=== PATIENT | male | born 1995 | race Two or more races ===

== ENCOUNTER 2023-09-23 10:23 | Emergency (ER) | payer SELFPAY ==
[~2023-09-23] VITALS: Ht 180.3 cm; Wt 136.4 kg
[2023-09-23 10:38] VITALS: TEMP 97.6
[2023-09-23] MEDS ORDERED: LORazepam 2 MG/ML VIAL IM ONE (11:00)
[2023-09-23] MEDS ORDERED: DiphenhydrAMINE HCL 50 MG/ML VIAL IM ONE (11:00)
[2023-09-23] MEDS ORDERED: HALOPERIDOL LACTATE 5 MG/ML VIAL IM ONE (11:00)
[2023-09-23 11:40] LABS: COVID AG,FIA SOURCE NASAL SWAB
[2023-09-23 11:42] LABS: BASOPHILS % (AUTO) 0.5 % (0.0-2.0); EOSINOPHILS % (AUTO) 1.8 % (1.0-6.0); HEMATOCRIT 39.1 % (41-53); HEMOGLOBIN 13.5 g/dL (13.5-17.5); LYMPHOCYTES # (AUTO) 1.1 K/uL (1.0-4.8); LYMPHOCYTES % (AUTO) 13.3 % (22.0-44.0); MEAN CORPUSCULAR HEMOGLOBIN 31.4 pg (26.0-34.0); MEAN CORPUSCULAR HGB CONC 34.4 G/dL (31.0-37.0); MEAN CORPUSCULAR VOLUME 91 fL (80-100); MONOCYTES # (AUTO) 0.6 K/uL (0.1-1.0); MONOCYTES % (AUTO) 6.9 % (2.0-9.0); NEUTROPHILS # (AUTO) 6.3 K/uL (1.8-7.7); NEUTROPHILS % (AUTO) 77.5 % (40.0-70.0); PLATELET COUNT (AUTO) 195 K/uL (150-450); RED BLOOD CELL COUNT(AUTO) 4.29 MIL/uL (4.50-5.90); RED CELL DISTRIBUTION WIDTH 14.2 % (11.5-14.5); WHITE BLOOD COUNT (AUTO) 8.2 K/uL (4.5-11.0)
[2023-09-23 11:52] LABS: ANION GAP 11 mmol/L (8-16); CALCIUM, TOTAL 8.7 mg/dL (8.8-10.5); CARBON DIOXIDE 25 mmol/L (22-29); CHLORIDE 104 mmol/L (98-107); CREATININE 0.67 mg/dL (0.60-1.30); GLOMERULAR FILTR. RATE CALC > 60 mL/min (>60); GLUCOSE,RANDOM 108 mg/dL (70-110); POTASSIUM 3.4 mmol/L (3.5-5.1); SODIUM SERUM 140 mmol/L (136-145); UREA NITROGEN, BLOOD 11 mg/dL (7-18)
[2023-09-23 11:58] LABS: TROPONIN I-HIGH SENSITIVITY 7 ng/L (<76)
[2023-09-23 12:04] LABS: LACTIC ACID 0.9 mmol/L (0.4-2.0)
[2023-09-23 12:16] LABS: ALANINE AMINOTRANSFERASE 58 U/L (12-78); ALBUMIN 3.4 g/dL (3.4-5.0); ALKALINE PHOSPHATASE 73 U/L (46-116); ASPARTATE AMINOTRANSFERASE 75 U/L (15-37); BILIRUBIN,TOTAL 0.8 mg/dL (0.1-1.0); LIPASE 17 U/L (16-77); TOTAL PROTEIN, SERUM 7.6 g/dL (6.4-8.2)
[2023-09-23 12:18] LABS: CREATINE KINASE, TOTAL ONLY 2136 U/L (39-308)
[2023-09-23 12:24] LABS: SARS-COV2 (COVID) ANTIGEN,FIA Negative (Negative)
[2023-09-23 13:05] LABS: ALCOHOL, BLOOD (SERUM) < 3 mg/dL (0-10)
[2023-09-23] MEDS ORDERED: POTASSIUM CHLORIDE 10% 40 MEQ/30 ML LIQUID UDCUP PO ONE (14:15)
[2023-09-23 23:01] VITALS: BP 113/53; PULSE 80
[2023-09-24 06:00] VITALS: RESP 16
== END 2023-09-24 06:03 | disposition home or self-care (01) ==
LOC: EMS 10:25
DX: S80.11XA Contusion of right lower leg, initial encounter (principal); S90.414A Abrasion, right lesser toe(s), initial encounter; E87.6 Hypokalemia; F15.10 Other stimulant abuse, uncomplicated; F17.210 Nicotine dependence, cigarettes, uncomplicated; Z20.822 Contact with and (suspected) exposure to COVID-19; X58.XXXA Exposure to other specified factors, initial encounter; Y93.89 Activity, other specified; Y92.89 Other specified places as the place of occurrence of the external cause; Y99.8 Other external cause status
CPT/HCPCS: 99291; 87426; 80053; 82550; 83605; 83690; 84484; 85025; 73562; 73590; 73630; 96372; G0480; J1200; J1630; J2060

== ENCOUNTER 2023-10-24 16:57 | Inpatient (IN) | payer MEDICAID, SELFPAY ==
[~2023-10-24] VITALS: Ht 177.8 cm; Wt 103.4 kg
[2023-10-24 18:48] LABS: ALCOHOL, URINE DRUG SCREEN NEGATIVE (NEGATIVE); AMPHET/METH SCREEN,URINE POSITIVE (NEGATIVE); BARBITURATE SCREEN, URINE NEGATIVE (NEGATIVE); BENZODIAZEPINES SCREEN,URINE NEGATIVE (NEGATIVE); CANNABINOID SCREEN,URINE POSITIVE (NEGATIVE); COCAINE SCREEN,URINE NEGATIVE (NEGATIVE); METHADONE SCREEN, URINE NEGATIVE (NEGATIVE); OPIATE SCREEN,URINE NEGATIVE (NEGATIVE); PHENCYCLIDINE SCREEN,URINE NEGATIVE (NEGATIVE)
[2023-10-24 18:56] LABS: BASOPHILS % (AUTO) 0.4 % (0.0-2.0); EOSINOPHILS % (AUTO) 1.8 % (1.0-6.0); HEMATOCRIT 41.1 % (41-53); LYMPHOCYTES # (AUTO) 2.1 K/uL (1.0-4.8); LYMPHOCYTES % (AUTO) 31.2 % (22.0-44.0); MEAN CORPUSCULAR HEMOGLOBIN 30.8 pg (26.0-34.0); MEAN CORPUSCULAR VOLUME 91 fL (80-100); MONOCYTES # (AUTO) 0.6 K/uL (0.1-1.0); MONOCYTES % (AUTO) 9.7 % (2.0-9.0); NEUTROPHILS # (AUTO) 3.8 K/uL (1.8-7.7); NEUTROPHILS % (AUTO) 56.9 % (40.0-70.0); PLATELET COUNT (AUTO) 212 K/uL (150-450); RED BLOOD CELL COUNT(AUTO) 4.54 MIL/uL (4.50-5.90); RED CELL DISTRIBUTION WIDTH 14.4 % (11.5-14.5); WHITE BLOOD COUNT (AUTO) 6.7 K/uL (4.5-11.0)
[2023-10-24 19:07] LABS: ANION GAP 7 mmol/L (8-16); CALCIUM, TOTAL 9.4 mg/dL (8.8-10.5); CARBON DIOXIDE 29 mmol/L (22-29); CHLORIDE 104 mmol/L (98-107); GLOMERULAR FILTR. RATE CALC > 60 mL/min (>60); GLUCOSE,RANDOM 96 mg/dL (70-110); POTASSIUM 3.9 mmol/L (3.5-5.1); SODIUM SERUM 140 mmol/L (136-145); UREA NITROGEN, BLOOD 11 mg/dL (7-18)
[2023-10-24 19:14] LABS: ALANINE AMINOTRANSFERASE 43 U/L (12-78); ALBUMIN 4.1 g/dL (3.4-5.0); ALKALINE PHOSPHATASE 83 U/L (46-116); ASPARTATE AMINOTRANSFERASE 39 U/L (15-37); BILIRUBIN,TOTAL 0.7 mg/dL (0.1-1.0); TOTAL PROTEIN, SERUM 8.3 g/dL (6.4-8.2)
[2023-10-24 19:16] LABS: ALCOHOL, BLOOD (SERUM) < 3 mg/dL (0-10)
[2023-10-24 19:17] LABS: COVID AG,FIA SOURCE NASAL SWAB
[2023-10-24 19:42] LABS: SARS-COV2 (COVID) ANTIGEN,FIA Negative (Negative)
[2023-10-24] MEDS ORDERED: ZOLPIDEM TARTRATE 10 MG TABLET PO PRN (20:30)
[2023-10-24 21:48] LABS: APPEARANCE,URINE TURBID (CLEAR); BILIRUBIN,URINE NEGATIVE (NEGATIVE); COLOR,URINE ORANGE (YELLOW); GLUCOSE, URINE (UA) NEGATIVE (NEGATIVE); KETONES,URINE NEGATIVE (NEGATIVE); LEUKOCYTE ESTERASE ,URINE NEGATIVE (NEGATIVE); NITRATE,URINE NEGATIVE (NEGATIVE); OCCULT BLOOD,URINE NEGATIVE (NEGATIVE); PROTEIN,URINE 30-70 mg/dL (NEGATIVE); SPECIFIC GRAVITIY, URINE 1.038 (1.003-1.030)
[2023-10-25 02:09] VITALS: BP 134/85; PULSE 74; RESP 19; TEMP 97.1; O2SAT 99
[2023-10-25] MEDS ORDERED: INFLUENZA VIRUS VACCINE QVS 2023-24 (6MO+)/PF 60 MCG/0.5 ML SYRINGE IM. ONE (02:45)
[2023-10-25 08:13] VITALS: BP 116/86; PULSE 77; RESP 18; TEMP 97.9; O2SAT 96
[2023-10-25] MEDS: BACITRACIN 28 GM OINTMENT TP SCH ×2 (09:00→17:16)
[2023-10-25] MEDS: SERTRALINE HCL 50 MG TABLET PO SCH (11:19)
[2023-10-25] MEDS ORDERED: CloNIDine HCL 0.1 MG TABLET PO PRN (13:45)
[2023-10-25] MEDS ORDERED: IBUPROFEN 400 MG TABLET PO PRN (13:45)
[2023-10-25] MEDS ORDERED: ONDANSETRON HCL 4 MG TABLET PO PRN (13:45)
[2023-10-25] MEDS ORDERED: ACETAMINOPHEN 325 MG TABLET PO PRN (13:45)
[2023-10-25] MEDS ORDERED: DOCUSATE SODIUM 100 MG CAPSULE PO PRN (13:45)
[2023-10-25] MEDS ORDERED: MAG HYDROX/ALUMINUM HYD/SIMETH ES 30 ML SUSPENSION UDCUP PO PRN (13:45)
[2023-10-25] MEDS ORDERED: LOPERAMIDE HCL 2 MG CAPSULE PO PRN (13:45)
[2023-10-25] MEDS ORDERED: GuaiFENesin/D-METHORPHAN [SUGAR-FREE] 200-20MG/10 ML SYRUP UDCUP PO PRN (13:45)
[2023-10-25] MEDS ORDERED: MAGNESIUM HYDROXIDE SUSPENSION 30 ML UDCUP PO PRN (13:45)
[2023-10-25] MEDS ORDERED: PETROLATUM,WHITE 28 GM JELLY TP PRN (13:45)
[2023-10-25] MEDS ORDERED: ALBUTEROL SULFATE HFA 90 MCG/PUFF 8 GM INHALER IH PRN (13:45)
[2023-10-25] MEDS ORDERED: NICOTINE 14 MG/24 HOUR PATCH TD PRN (13:45)
[2023-10-25 23:47] VITALS: BP 118/78; PULSE 78; RESP 18; TEMP 97.8; O2SAT 98
[2023-10-26] MEDS: SERTRALINE HCL 50 MG TABLET PO SCH (08:18)
[2023-10-26] MEDS: BACITRACIN 28 GM OINTMENT TP SCH ×2 (08:19→16:42)
[2023-10-26 08:49] LABS: HEMOGLOBIN A1C 5.1 % (3.8-5.6)
[2023-10-26 08:58] LABS: CHOL/HDL RATIO 2.9 (4.2-7.3); FREE T4 (FREE THYROXINE) 1.36 ng/dL (0.76-1.46); THYROID STIMULATING HORMONE 0.49 uIU/mL (0.36-3.74)
[2023-10-26 09:40] VITALS: BP 133/73; PULSE 98; RESP 17; TEMP 98.9; O2SAT 99
[2023-10-26 23:31] VITALS: RESP 18
[2023-10-27] MEDS: BACITRACIN 28 GM OINTMENT TP SCH ×2 (08:48→16:48)
[2023-10-27] MEDS: SERTRALINE HCL 50 MG TABLET PO SCH (08:48)
[2023-10-27 09:04] VITALS: BP 122/66; PULSE 78; RESP 17; TEMP 98.2; O2SAT 97
[2023-10-27 23:30] VITALS: BP 120/69; PULSE 97; RESP 18; TEMP 98.3; O2SAT 99
[2023-10-28 08:43] VITALS: BP 124/64; PULSE 76; RESP 16; TEMP 97.5; O2SAT 97
[2023-10-28] MEDS: SERTRALINE HCL 50 MG TABLET PO SCH (09:19)
[2023-10-28] MEDS: BACITRACIN 28 GM OINTMENT TP SCH ×2 (09:19→16:00)
[2023-10-28] MEDS: LORazepam 2 MG TABLET PO PRN (16:27)
[2023-10-28 20:42] VITALS: BP 128/77; PULSE 99; RESP 17; TEMP 97.8; O2SAT 97
[2023-10-29] MEDS: HALOPERIDOL 5 MG TABLET PO PRN (08:51)
[2023-10-29] MEDS: LORazepam 2 MG TABLET PO PRN ×2 (08:53→17:10)
[2023-10-29] MEDS: SERTRALINE HCL 50 MG TABLET PO SCH (08:54)
[2023-10-29] MEDS: BACITRACIN 28 GM OINTMENT TP SCH ×2 (08:54→16:29)
[2023-10-29 08:59] VITALS: BP 137/70; PULSE 92; RESP 17; TEMP 97.8; O2SAT 98
[2023-10-29] MEDS ORDERED: CARBAMIDE PEROXIDE 6.5% 15 ML OTIC SOLUTION AS PRN (14:15)
[2023-10-29] MEDS: RisperiDONE 1 MG TABLET PO SCH (20:09)
[2023-10-29 20:22] VITALS: BP 134/64; PULSE 85; RESP 18; TEMP 98.3; O2SAT 96
[2023-10-30 08:37] VITALS: BP 121/64; PULSE 77; RESP 18; TEMP 97.8; O2SAT 95
[2023-10-30] MEDS: SERTRALINE HCL 50 MG TABLET PO SCH (08:54)
[2023-10-30] MEDS: LORazepam 2 MG TABLET PO PRN ×2 (08:54→16:53)
[2023-10-30] MEDS: RisperiDONE 1 MG TABLET PO SCH ×2 (08:54→21:50)
[2023-10-30] MEDS: HALOPERIDOL 5 MG TABLET PO PRN ×2 (08:54→16:53)
[2023-10-30] MEDS: BACITRACIN 28 GM OINTMENT TP SCH ×2 (08:54→16:54)
[2023-10-30 20:25] VITALS: RESP 20; TEMP 98
[2023-10-31 08:41] VITALS: BP 138/63; PULSE 78; RESP 19; TEMP 97.7; O2SAT 97
[2023-10-31] MEDS: BACITRACIN 28 GM OINTMENT TP SCH ×2 (09:00→17:03)
[2023-10-31] MEDS: SERTRALINE HCL 50 MG TABLET PO SCH (10:15)
[2023-10-31] MEDS: RisperiDONE 1 MG TABLET PO SCH ×2 (10:15→20:26)
[2023-10-31] MEDS: LORazepam 2 MG TABLET PO PRN ×2 (10:21→17:56)
[2023-10-31] MEDS: HALOPERIDOL 5 MG TABLET PO PRN ×2 (10:21→17:56)
[2023-10-31 20:03] VITALS: BP 111/71; PULSE 79; RESP 18; TEMP 97.8; O2SAT 96
[2023-11-01 08:27] VITALS: BP 111/60; PULSE 64; RESP 17; TEMP 98; O2SAT 97
[2023-11-01] MEDS: LORazepam 2 MG TABLET PO PRN (08:34)
[2023-11-01] MEDS: HALOPERIDOL 5 MG TABLET PO PRN (08:35)
[2023-11-01] MEDS: RisperiDONE 1 MG TABLET PO SCH ×2 (08:35→20:21)
[2023-11-01] MEDS: SERTRALINE HCL 50 MG TABLET PO SCH (08:37)
[2023-11-01] MEDS: BACITRACIN 28 GM OINTMENT TP SCH ×2 (08:37→16:10)
[2023-11-01 21:53] VITALS: BP 114/65; PULSE 89; RESP 18; TEMP 98.6; O2SAT 99
[2023-11-02] MEDS: SERTRALINE HCL 50 MG TABLET PO SCH (08:06)
[2023-11-02] MEDS: RisperiDONE 1 MG TABLET PO SCH ×2 (08:06→21:35)
[2023-11-02] MEDS: LORazepam 2 MG TABLET PO PRN ×2 (08:07→15:09)
[2023-11-02] MEDS: HALOPERIDOL 5 MG TABLET PO PRN ×2 (08:07→15:09)
[2023-11-02] MEDS: BACITRACIN 28 GM OINTMENT TP SCH ×2 (08:08→18:35)
[2023-11-02 08:46] VITALS: BP 121/64; PULSE 73; RESP 18; TEMP 98.2; O2SAT 99
[2023-11-02 21:05] VITALS: BP 111/68; PULSE 84; RESP 17; TEMP 97.6; O2SAT 99
[2023-11-03 08:26] VITALS: BP 110/67; PULSE 92; RESP 18; TEMP 97.7; O2SAT 98
[2023-11-03] MEDS: RisperiDONE 1 MG TABLET PO SCH ×2 (08:34→21:52)
[2023-11-03] MEDS: SERTRALINE HCL 50 MG TABLET PO SCH (08:34)
[2023-11-03] MEDS: BACITRACIN 28 GM OINTMENT TP SCH ×2 (08:35→17:16)
[2023-11-03] MEDS: LORazepam 2 MG TABLET PO PRN ×2 (13:18→21:52)
[2023-11-03 20:00] VITALS: BP 111/71; PULSE 71; RESP 18; TEMP 97.4; O2SAT 97
[2023-11-03] MEDS: HALOPERIDOL 5 MG TABLET PO PRN (21:53)
[2023-11-04 08:17] VITALS: BP 131/61; PULSE 66; RESP 18; TEMP 97.8; O2SAT 97
[2023-11-04] MEDS: SERTRALINE HCL 50 MG TABLET PO SCH (08:29)
[2023-11-04] MEDS: RisperiDONE 1 MG TABLET PO SCH ×2 (08:30→20:28)
[2023-11-04 20:26] VITALS: BP 106/66; PULSE 65; RESP 16; TEMP 97.2; O2SAT 98
[2023-11-05] MEDS: SERTRALINE HCL 50 MG TABLET PO SCH (08:07)
[2023-11-05] MEDS: RisperiDONE 1 MG TABLET PO SCH ×2 (08:07→21:38)
[2023-11-05 08:24] VITALS: BP 107/68; PULSE 82; RESP 17; TEMP 97.7; O2SAT 99
[2023-11-05] MEDS: HALOPERIDOL 5 MG TABLET PO PRN (12:43)
[2023-11-05 20:10] VITALS: RESP 16; TEMP 97.8
[2023-11-06 01:42] VITALS: BP 106/67; PULSE 93; RESP 18; TEMP 97.5; O2SAT 100
[2023-11-06] MEDS: SERTRALINE HCL 50 MG TABLET PO SCH (08:19)
[2023-11-06] MEDS: RisperiDONE 1 MG TABLET PO SCH ×2 (08:19→20:43)
[2023-11-06 08:32] VITALS: BP 103/61; PULSE 76; RESP 18; TEMP 97.9; O2SAT 100
[2023-11-06] MEDS: LORazepam 2 MG TABLET PO PRN (12:58)
[2023-11-06 20:07] VITALS: BP 110/67; PULSE 68; RESP 17; TEMP 97.5; O2SAT 100
[2023-11-07] MEDS: SERTRALINE HCL 50 MG TABLET PO SCH (08:57)
[2023-11-07] MEDS: RisperiDONE 1 MG TABLET PO SCH ×2 (08:57→20:35)
[2023-11-07] MEDS: HALOPERIDOL 5 MG TABLET PO PRN (08:58)
[2023-11-07 09:10] VITALS: BP 126/68; PULSE 74; RESP 18; TEMP 98.1; O2SAT 97
[2023-11-07 21:02] VITALS: BP 100/60; PULSE 66; RESP 18; TEMP 97; O2SAT 96
[2023-11-07 21:56] LABS: GLUCOMETER DEV NAME(LOC) POC.BV; POC SARS-COV2 AG, FIA NEGATIVE (NEGATIVE)
[2023-11-08] MEDS: LORazepam 2 MG TABLET PO PRN (03:22)
[2023-11-08] MEDS ORDERED: SERT-439 PO (07:00)
[2023-11-08] MEDS ORDERED: RISP1TAB98 PO (07:00)
[2023-11-08 08:11] VITALS: BP 106/66; PULSE 70; RESP 16; TEMP 97.6; O2SAT 98
[2023-11-08] MEDS: RisperiDONE 1 MG TABLET PO SCH (08:29)
[2023-11-08] MEDS: SERTRALINE HCL 50 MG TABLET PO SCH (08:29)
== END 2023-11-08 10:03 | disposition home or self-care (01) | DRG 750 ==
LOC: EMS 17:16 → B2S 22:23
PROVIDERS: ADMIT Psychiatry & Neurology Child & Adolescent Psychiatry; ATTEND Psychiatry & Neurology Child & Adolescent Psychiatry
PROC: GZHZZZZ Group Psychotherapy (ICD-10-PCS; principal; 2023-11-01)
DX: F25.1 Schizoaffective disorder, depressive type (principal); R45.851 Suicidal ideations; F12.90 Cannabis use, unspecified, uncomplicated; F17.210 Nicotine dependence, cigarettes, uncomplicated; F41.9 Anxiety disorder, unspecified; G47.00 Insomnia, unspecified; R74.01 Elevation of levels of liver transaminase levels; Z20.822 Contact with and (suspected) exposure to COVID-19; F15.20 Other stimulant dependence, uncomplicated; K59.00 Constipation, unspecified; Z59.00 Homelessness unspecified; Z79.899 Other long term (current) drug therapy
CPT/HCPCS: 80053; 80061; 80307; 81003; 83036; 84439; 84443; 85025; 99285; G0480; Q0162

== ENCOUNTER → 2024-05-27 | Emergency (ER) | payer MEDICAID ==
[~2024-05-27] VITALS: Ht 175.3 cm; Wt 145.4 kg
[~2024-05-27] MED LIST: RISP-31 PO; SERT-439 PO
[2024-05-27 04:49] VITALS: BP 160/96; PULSE 86; RESP 16; TEMP 97.2
[2024-05-27 05:31] LABS: BASOPHILS % (AUTO) 0.7 % (0.0-2.0); EOSINOPHILS % (AUTO) 0.7 % (1.0-6.0); HEMATOCRIT 46.6 % (41-53); HEMOGLOBIN 15.8 g/dL (13.5-17.5); LYMPHOCYTES # (AUTO) 1.3 K/uL (1.0-4.8); LYMPHOCYTES % (AUTO) 17.2 % (22.0-44.0); MEAN CORPUSCULAR HEMOGLOBIN 31.2 pg (26.0-34.0); MEAN CORPUSCULAR HGB CONC 33.8 G/dL (31.0-37.0); MEAN CORPUSCULAR VOLUME 92 fL (80-100); MONOCYTES # (AUTO) 0.5 K/uL (0.1-1.0); MONOCYTES % (AUTO) 6.6 % (2.0-9.0); NEUTROPHILS # (AUTO) 5.7 K/uL (1.8-7.7); NEUTROPHILS % (AUTO) 74.8 % (40.0-70.0); PLATELET COUNT (AUTO) 249 K/uL (150-450); RED BLOOD CELL COUNT(AUTO) 5.06 MIL/uL (4.50-5.90); RED CELL DISTRIBUTION WIDTH 13.8 % (11.5-14.5); WHITE BLOOD COUNT (AUTO) 7.6 K/uL (4.5-11.0)
[2024-05-27 05:41] LABS: ANION GAP 8 mmol/L (8-16); CALCIUM, TOTAL 9.6 mg/dL (8.8-10.5); CARBON DIOXIDE 28 mmol/L (22-29); CHLORIDE 101 mmol/L (98-107); CREATININE 0.71 mg/dL (0.60-1.30); GLOMERULAR FILTR. RATE CALC > 60 mL/min (>60); GLUCOSE,RANDOM 101 mg/dL (70-110); POTASSIUM 4.2 mmol/L (3.5-5.1); SODIUM SERUM 137 mmol/L (136-145); UREA NITROGEN, BLOOD 7 mg/dL (7-18)
[2024-05-27 06:04] LABS: ALCOHOL, BLOOD (SERUM) < 3 mg/dL (0-10)
== END | disposition left against medical advice (07) ==
LOC: EMS 04:39
DX: F15.10 Other stimulant abuse, uncomplicated (principal); R07.9 Chest pain, unspecified; F17.210 Nicotine dependence, cigarettes, uncomplicated; Z79.899 Other long term (current) drug therapy
CPT/HCPCS: 99283; 80048; 85025; 36415; G0480